=== PATIENT | male | born 1945 | race Hispanic/Latino ===

== ENCOUNTER 2023-04-02 05:00 | Observation (INO) | payer MEDICARE ==
[2023-03-28 10:45] LABS: CREATININE 1.1 mg/dL (0.5-1.5)
[2023-03-28 11:03] VITALS: BP 161/68; PULSE 58; RESP 20
[2023-04-02] VITALS (28 sets, daily range): BP systolic 100–141; BP diastolic 48–79; PULSE 59–91; RESP 10–20; O2SAT 97–99
[~2023-04-02] VITALS: Ht 182.9 cm; Wt 104.1 kg
[~2023-04-02 05:00] MED LIST: ACETAMINOPHEN PO; ASPIRIN PO; CAFFEINE PO; LEVO5TAB13 PO; MONT-39 PO; PANT40TA54 PO; PRIM50TA23 PO; PROP10TA10 PO
[2023-04-02] MEDS ORDERED: CEFAZOLIN SODIUM 2 GM VIAL ONE (06:08)
[2023-04-02] MEDS ORDERED: CLINDAMYCIN IVPB 900MG/50ML 50 ML IV ONE (06:10)
[2023-04-02] MEDS ORDERED: LACTATED RINGERS 1000ML 1,000 ML IV ONE (06:10)
[2023-04-02] MEDS ORDERED: 0.9%NACL 100ML 48.45 ML, ROPIVACAINE 0.5% 5MG/ML 30ML 246.25 MG, KETOROLAC TROMETHAMINE... IV PRN ×5 (07:30)
[2023-04-02] MEDS ORDERED: LIDOCAINE PF 100MG/5ML (2%) SYRINGE 5ML ONE (09:10)
[2023-04-02] MEDS ORDERED: SUCCINYLCHOLINE CHLORIDE 20 MG/ML 10 ML VIAL ONE (09:10)
[2023-04-02] MEDS ORDERED: ROCURONIUM 10MG/1ML SYR 10 MG/ML ML ONE (09:12)
[2023-04-02] MEDS ORDERED: NEOSTIGMINE 5MG/5ML SYR IV ONE (09:12)
[2023-04-02] MEDS ORDERED: DEXAMETHASONE SOD PHOSPHATE 10MG/ML 1ML VIAL ONE (09:12)
[2023-04-02] MEDS ORDERED: GLYCOPYRROLATE 1 MG/5 ML SYRINGE ONE (09:12)
[2023-04-02] MEDS ORDERED: PROPOFOL 10 MG/ML 20ML VIAL IV ONE ×2 (09:12→10:49)
[2023-04-02] MEDS ORDERED: ONDANSETRON 4MG INJ ONE (09:12)
[2023-04-02] MEDS ORDERED: FENTANYL CITRATE PF 50 MCG/1 ML 5ML AMP IV ONE ×2 (09:16→11:51)
[2023-04-02] MEDS ORDERED: PHENYLEPHRINE HCL 10 MG/ML 1ML VIAL IV ONE (09:19)
[2023-04-02] MEDS ORDERED: TRANEXAMIC ACID 1000MG/10ML ONE (09:57)
[2023-04-02] MEDS ORDERED: GENTAMICIN SULFATE 80 MG/2 ML VIAL ONE (09:58)
[2023-04-02] MEDS ORDERED: CEFAZOLIN SODIUM 1 GM VIAL ONE ×2 (09:58)
[2023-04-02] MEDS ORDERED: EPHEDRINE SULFATE 50 MG/ML AMPULE ONE (10:23)
[2023-04-02] MEDS ORDERED: KETAMINE 50MG/ML SYRINGE 50 MG/ML DISP.SYRIN ONE (10:46)
[2023-04-02] MEDS ORDERED: MIDAZOLAM HCL 1 MG/ML 5ML VIAL ONE (10:46)
[2023-04-02] MEDS ORDERED: MORPHINE PF 100MG/10ML AMP IV ONE (10:47)
[2023-04-02] MEDS ORDERED: TRANEXAMIC ACID 1000MG/10ML IV ONE (12:05)
[2023-04-02] MEDS ORDERED: TRAMADOL HCL 50 MG TABLET PO PRN (14:30)
[2023-04-02] MEDS ORDERED: ACETAMINOPHEN 325 MG TAB PO SCH (14:30)
[2023-04-02] MEDS ORDERED: LACTULOSE 20 GM/30 ML UDCUP PO PRN (14:30)
[2023-04-02] MEDS ORDERED: ACETAMINOPHEN 325 MG TAB PO PRN ×2 (14:30)
[2023-04-02] MEDS ORDERED: DIPHENOXYLATE HCL/ATROPINE 2.5/0.025 MG TAB PO PRN (14:30)
[2023-04-02] MEDS ORDERED: DIPHENHYDRAMINE HCL 25 MG CAPSULE PO PRN (14:30)
[2023-04-02] MEDS ORDERED: BENZOCAINE/MENTH/CETYLPYRD CL 1 EACH LOZENGE MM PRN (14:30)
[2023-04-02] MEDS ORDERED: HYDROMORPHONE PCA 10 MG/50 ML 50 ML IV PRN (14:30)
[2023-04-02] MEDS ORDERED: ONDANSETRON 4MG INJ IVP PRN (14:30)
[2023-04-02] MEDS ORDERED: DIPHENHYDRAMINE HCL 25 MG CAPSULE PO SCH (14:30)
[2023-04-02] MEDS ORDERED: MAG/ALUM/SIMETH 30 ML UDCUP PO PRN (14:30)
[2023-04-02] MEDS ORDERED: COMPOUND IV REFRIGERATED 1 EACH IVSOLN MISC PRN (15:00)
[2023-04-02] MEDS: 0.9%NACL 1000ML 1,000 ML IV SCH ×2 (15:02→22:47)
[2023-04-02] MEDS ORDERED: PROPRANOLOL HCL 10 MG TAB PO PRN (15:30)
[2023-04-02] MEDS ORDERED: CEFAZOLIN SODIUM 2 GM VIAL IVPB SCH (18:50)
[2023-04-02] MEDS ORDERED: PRIMIDONE 50 MG TAB PO SCH (21:00)
[2023-04-02] MEDS ORDERED: MONTELUKAST SODIUM 10 MG TAB PO SCH (21:00)
[2023-04-02] MEDS: PANTOPRAZOLE 40 MG TAB DR PO SCH (21:08)
[2023-04-02] MEDS: CEFAZOLIN SODIUM 3 GM in DEXTROSE 5%-WATER 100 ML IVPB SCH (21:09)
[2023-04-03] VITALS (7 sets, daily range): BP systolic 110–139; BP diastolic 59–78; PULSE 57–113; RESP 17–18; O2SAT 95
[2023-04-03] MEDS: CEFAZOLIN SODIUM 3 GM in DEXTROSE 5%-WATER 100 ML IVPB SCH (04:29)
[2023-04-03 05:44] LABS: MEAN CORPUSCULAR HGB CONC 32.8 g/dL (32.0-36.0); MEAN CORPUSCULAR VOLUME 97.6 fL (79-99); RED BLOOD CELL COUNT(AUTO) 3.28 MIL/uL (4.50-6.20); RED CELL DISTRIBUTION WIDTH 14.1 % (11.0-15.5); WHITE BLOOD COUNT (AUTO) 9.8 K/uL (4.8-10.8)
[2023-04-03 06:05] LABS: CREATININE 1.1 mg/dL (0.5-1.5); POTASSIUM 4.3 mmol/L (3.5-5.1)
[2023-04-03] MEDS: PANTOPRAZOLE 40 MG TAB DR PO SCH (08:38)
[2023-04-03] MEDS ORDERED: CETIRIZINE HCL 5 MG TABLET PO SCH (09:00)
[2023-04-03] MEDS ORDERED: RIVAROXABAN 10 MG TABLET PO SCH (09:00)
[2023-04-03] MEDS ORDERED: HYDROCODONE/ACETAMINOPHEN 5/325 MG TAB PO PRN ×2 (10:30)
== END 2023-04-03 17:20 | disposition home or self-care (01) ==
LOC: DAH 05:00 → DAHIP 05:01 → 4DH 13:39
PROVIDERS: ADMIT Orthopaedic Surgery; ATTEND Orthopaedic Surgery
DX: M17.11 Unilateral primary osteoarthritis, right knee (principal); G47.00 Insomnia, unspecified; J43.9 Emphysema, unspecified; N18.9 Chronic kidney disease, unspecified; E66.9 Obesity, unspecified; K22.70 Barrett's esophagus without dysplasia; Z87.891 Personal history of nicotine dependence; Z68.31 Body mass index [BMI] 31.0-31.9, adult
CPT/HCPCS: 80048 ×2; 36415 ×2; 71046; 87641; 27447; 96365; 96366 ×3; 96368; 97161; 97012; 97116 ×3; 97530 ×4; 85027; A6260; G0378 ×24; A4663; J7120 ×2; A4215 ×2; A4649 ×4; J3010 ×2; J0690 ×4; J3490 ×6; J1170; J1100; J2710; J0330; J2001; J2250; J1580; J7060; J2704 ×2; J2274; J2405; J2371; A6223; C1763 ×2; C1776; A5120; A4223; A4222; A4221; A6450; J7030; A4510; 96367